=== PATIENT | male | born 1965 | race Caucasian/White ===

== ENCOUNTER → 2020-01-31 | Outpatient (CLI) | payer SELFPAY | LOC: VAS 10:38 | DX: R60.0 Localized edema (principal) ==

== ENCOUNTER → 2021-05-22 | Outpatient (CLI) | payer SELFPAY | LOC: RAD 07:15 | DX: R91.1 Solitary pulmonary nodule (principal); R00.1 Bradycardia, unspecified; F17.200 Nicotine dependence, unspecified, uncomplicated ==

== ENCOUNTER → 2021-06-05 | Outpatient (CLI) | payer SELFPAY | LOC: RAD 07:01 → EDSTATUS 17:00 | DX: M79.89 Other specified soft tissue disorders (principal); I25.10 Atherosclerotic heart disease of native coronary artery without angina pectoris | CPT/HCPCS: Q9967 ==